=== PATIENT | female | born 1945 | race Caucasian/White ===

== ENCOUNTER 2016-09-16 10:52 | Emergency (ER) | payer MEDICARE ==
--- NOTE | 2016-10-16 17:09 | ER ---
ADMIT: 09/16/2016 RM/LOC: ER [facility] MR#: [id number] [id number] MALI SCOTT [id number] [address] Emergency Room Report SEX: F AGE: 70 : 1945 DATE: 09/16/2016 ADDENDUM: CHIEF COMPLAINT: Vomiting. HISTORY OF PRESENT ILLNESS: This 70-year-old female, who had a partial finger amputation procedure done yesterday. She took hydrocodone and Levothyroxine prior to going to the mall, was trying to shop, became very nauseated, had intractable vomiting and was brought in by EMS. I gave her Reglan and Ativan along with a liter of fluids, she feels significantly better. I am sending her home, having her push fluids. I told her just to make sure she eats with if she has to take her pain medications, but try to avoid them if she can tolerate the pain. I am sending her home with Reglan incase she continues to have any nausea. FINAL CLINICAL IMPRESSION: Vomiting secondary to opiate use. JONATHAN Toure / Slava Tinajero MD / leahl JOB #: [id number] CC: Slava Tinajero MD, Attending Physician Dk Kim MD, Family Physician
== END 2016-09-16 12:42 | disposition home or self-care (01) ==
LOC: ER 10:52
DX: R11.10 Vomiting, unspecified (principal); T40.605A Adverse effect of unspecified narcotics, initial encounter; F32.9 Major depressive disorder, single episode, unspecified; Z88.0 Allergy status to penicillin; Z88.8 Allergy status to other drugs, medicaments and biological substances; Z90.710 Acquired absence of both cervix and uterus